=== PATIENT | male | born 1985 | race Hispanic/Latino ===

== ENCOUNTER → 2020-01-11 | Day surgery (SDC) | payer OTHER ==
[~2020-01-11] MED LIST: FENTANYL CITRATE/PF 100MCG/2 ML INJ ONE; HYOSCYAMINE 0.125 MG TAB ONE; MIDAZOLAM HCL 2 MG/2 ML VIAL ONE; PROPOFOL IV EMULSION 10 MG/ML 50 ML VIAL ONE; VITAMIN B12 PO; VITAMIN D PO
[2020-01-11 15:15] VITALS: BP 126/65
--- NOTE | 2020-01-11 18:40 | Operative Report ---
DATE OF PROCEDURE: 01/11/2020 SURGEON: Jameson Henao MD PROCEDURE: Colonoscopy with biopsies. INDICATION FOR PROCEDURE: Abdominal pain. MEDICATIONS: The patient was done under MAC, please see anesthesiologist's note. PROCEDURE IN DETAIL: With the patient in the left lateral decubitus position, a flexible fiberoptic Olympus colonoscope was inserted into the rectum with ease and advanced all the way to the cecum. Mucosa overlying the cecum appeared to be within normal limits. The ileocecal valve was intubated and the scope was advanced into the terminal ileum. Mucosa overlying the terminal ileum appeared to be within normal limits. The scope was then withdrawn back into the colon, it was then withdrawn slowly. Mucosa overlying the ascending colon appeared to be within normal limits. The mucosa overlying the transverse and the proximal descending revealed some patchy mild inflammatory changes and biopsies were obtained. The sigmoid appeared to be within normal limits. Similar inflammatory findings were noted in the rectum, biopsies were obtained. The scope was then retroflexed into the distal rectum, small internal hemorrhoids were noted, none of which was actively bleeding. The scope was then straightened out, it was subsequently withdrawn. The patient tolerated the procedure well. IMPRESSION: 1. Mild patchy colitis. 2. Proctitis, mild. 3. Internal hemorrhoids, none actively bleeding. PLAN: Follow up histology. Initiate Bentyl 20 mg one p.o. t.i.d. and VSL #3 one p.o. b.i.d. Check CRP, sedimentation rate, and IBD panel. Jameson Hena[place] [facility] [place] [place] /[id number] cc: Dr. Jesse Bojorquez.
== END | disposition home or self-care (01) ==
LOC: OR 09:44
PROVIDERS: ATTEND Internal Medicine Gastroenterology
DX: K52.9 Noninfective gastroenteritis and colitis, unspecified (principal); K62.89 Other specified diseases of anus and rectum; K64.8 Other hemorrhoids; Z80.0 Family history of malignant neoplasm of digestive organs
CPT/HCPCS: 36415; 45380; 85651; 86140; 86256; 86671; J2250; J2704; J3010; 45378